=== PATIENT | female | born 1995 | race Caucasian/White ===

== ENCOUNTER 2021-07-16 15:05 | Emergency (ER) | payer BC ==
[2021-07-16] MEDS ORDERED: Morphine 2 MG/ML SYRINGE IVPUSH ONE (15:24)
--- NOTE | 2021-07-16 15:29 | EDM.PDOC ---
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 The patient reports Dr. Medina placed an IUD (Mirena) on Thursday in the clinic. The patient reports she has been having increased cramping since the IUD was placed. The patient reports she has not contacted Dr. Medina prior to coming to the ED. The patient denies any additional symptoms or concerns. Onset Date: 07/12/21 Duration: Constant, Getting Worse Location: Reports: Abdomen (lower abdomen) Quality: Reports: Ache, Other (cramping) Severity: Moderate Improves with: Reports: None Worsens with: Reports: None Context: Reports: Other Associated Symptoms: Reports: No Other Symptoms ED ROS GENERAL - Review of Systems Review Of Systems: Comprehensive ROS is negative, except as noted in HPI. ED EXAM, GI/ABD - Physical Exam Exam: See Below Exam Limited By: No Limitations General Appearance: Alert, WD/WN, Moderate Distress Eyes: Bilateral: Normal Appearance, EOMI Ears: Normal External Exam, Normal Canal, Hearing Grossly Normal, Normal TMs Nose: Normal Inspection, Normal Mucosa, No Blood Throat/Mouth: Normal Inspection, Normal Lips, Normal Teeth, Normal Gums, Normal Oropharynx, Normal Voice, No Airway Compromise Head: Atraumatic, Normocephalic Neck: Normal Inspection, Supple, Non-Tender, Full Range of Motion Respiratory/Chest: No Respiratory Distress, Lungs Clear, Normal Breath Sounds, No Accessory Muscle Use, Chest Non-Tender Cardiovascular: Normal Peripheral Pulses, Regular Rate, Rhythm, No Edema, No Gallop, No JVD, No Murmur, No Rub GI/Abdominal Exam: Normal Bowel Sounds, Soft, No Organomegaly, No Distention, No Abnormal Bruit, No Mass, Pelvis Stable, Tender (lower abdomen) (Female) Exam: Deferred Rectal (Female) Exam: Deferred Back Exam: Normal Inspection, Full Range of Motion, NT Extremities: Normal Inspection, Normal Range of Motion, Non-Tender, Normal Capillary Refill, No Pedal Edema Neurological: Alert, Oriented, CN II-XII Intact, Normal Cognition, Normal Gait, Normal Reflexes, No Motor/Sensory Deficits Psychiatric: Normal Affect, Normal Mood Skin Exam: Warm, Dry, Intact, Normal Color, No Rash Lymphatic: No Adenopathy Course - Vital Signs Last Recorded V/S: Last Vital Signs Temp 97.6 F 07/16/21 15:22 Pulse 87 07/16/21 15:22 Resp 18 07/16/21 15:22 BP 156/115 H 07/16/21 15:22 Pulse Ox 98 07/16/21 15:22 - Orders/Labs/Meds Orders: Active Orders 24 hr Category Date Time Status CBC WITH AUTO DIFF [HEME] Stat Lab 07/16/21 15:24 Ordered COMPREHENSIVE METABOLIC PN,CMP [CHEM] Stat Lab 07/16/21 15:24 Ordered HCG QUALITATIVE,SERUM [CHEM] Stat Lab 07/16/21 15:24 Ordered Meds: Medications Discontinued Medications Generic Name Dose Route Start Last Admin Trade Name Freq PRN Reason Stop Dose Admin Morphine Sulfate 2 mg 07/16/21 15:24 Morphine 2 Mg/Ml Syringe IVPUSH 07/16/21 15:25 ONETIME ONE Departure - Departure Time of Disposition: 17:46 Disposition: Home, Self-Care 01 Condition: Fair Clinical Impression: Uterine cramping IUD complication Qualifiers: Device complication type: unspecified Encounter type: initial encounter Qualified Code(s): T83.9XXA - Unspecified complication of genitourinary prosthetic device, implant and graft, initial encounter - Discharge Information *PRESCRIPTION DRUG MONITORING PROGRAM REVIEWED*: Not Applicable *COPY OF PRESCRIPTION DRUG MONITORING REPORT IN PATIENT CHERISE: Not Applicable Forms: ED Department Discharge Care Plan Goals: The patient was advised of the examination, lab and ultrasound results during the visit. The patient was advised to call Dr. Muñoz's nurse if she chooses to have the IUD removed. The patient was given an IV dose of Morphine and an oral dose of Harvey (10/325) while in the ED for discomfort. The patient was discharged with a script for Harvey (5/325) #12 to take 1 by mouth every 6 hours as needed for the cramping/pain. If the patient has any additional symptoms or concerns, the patient should either return to the emergency department or visit her primary care facility. Sepsis Event Note (ED) - Focused Exam Vital Signs: Vital Signs Temp Pulse Resp BP Pulse Ox 07/16/21 15:22 97.6 F 87 18 156/115 H 98 - My Orders Last 24 Hours: My Active Orders 07/16/21 15:24 CBC WITH AUTO DIFF [HEME] Stat COMPREHENSIVE METABOLIC PN,CMP [CHEM] Stat HCG QUALITATIVE,SERUM [CHEM] Stat - Assessment/Plan Last 24 Hours: My Active Orders 07/16/21 15:24 CBC WITH AUTO DIFF [HEME] Stat COMPREHENSIVE METABOLIC PN,CMP [CHEM] Stat HCG QUALITATIVE,SERUM [CHEM] Stat
[2021-07-16 15:55] LABS: CHLORIDE,CL 102 mmol/L (98-107); SODIUM,NA 140 mmol/L (136-145)
--- NOTE | 2021-07-16 17:31 | US ---
PROCEDURE INFORMATION: Exam: US Pelvis, Transabdominal, Limited Exam date and time: 07/16/2021 4:34 PM Age: 26 years old Clinical indication: Device placement; Iud placement/localization; Prior surgery; Surgery date: 6+ months; Surgery type: Fibroid surgery March 2021 TECHNIQUE: Imaging protocol: Real-time limited transabdominal pelvic ultrasound with image documentation. COMPARISON: No relevant prior studies available. FINDINGS: Uterus/cervix: The uterus measures 6.9 x 4.4 x 3.5 cm. There is an IUD present in the uterus in an appropriate position. Few nabothian cysts in the cervix. Right adnexa: The right ovary measures 2.5 x 4 x 2.2 cm. Normal flow demonstrated. Left adnexa: The left ovary measures 2.9 x 1.9 x 1.7 cm. Normal flow demonstrated. IMPRESSION: There is an IUD present in the uterus in an appropriate position.
--- NOTE | 2021-07-16 17:31 | US ---
PROCEDURE INFORMATION: Exam: US Pelvis, Transvaginal Exam date and time: 07/16/2021 4:34 PM Age: 26 years old Clinical indication: Device placement; Iud placement/localization; Prior surgery; Surgery date: 6+ months; Surgery type: Fibroid surgery March 2021; Additional info: Iud placed Thursday (07/12/21), TECHNIQUE: Imaging protocol: Real-time transvaginal pelvic ultrasound with image documentation. Transvaginal imaging was used for better evaluation of the endometrium, adnexa, and/or cervix. COMPARISON: No relevant prior studies available. FINDINGS: Uterus/cervix: The uterus measures 6.9 x 4.4 x 3.5 cm. There is an IUD present in the uterus in an appropriate position. Few nabothian cysts in the cervix. Right adnexa: The right ovary measures 2.5 x 4 x 2.2 cm. Normal flow demonstrated. Left adnexa: The left ovary measures 2.9 x 1.9 x 1.7 cm. Normal flow demonstrated. Intraperitoneal space: No free fluid. IMPRESSION: There is an IUD present in the uterus in an appropriate position.
[2021-07-16] MEDS ORDERED: Acetaminophen/HYDROcodone 325-10 MG Tab PO ONE (17:46)
== END 2021-07-16 18:05 | disposition home or self-care (01) ==
LOC: DL.ED 15:05
DX: T83.89XA Other specified complication of genitourinary prosthetic devices, implants and grafts, initial encounter (principal); R10.2 Pelvic and perineal pain
CPT/HCPCS: 36415; 76830; 76857; 80053; 84703; 85025; 96374; 99284; A9270; J2270

== ENCOUNTER 2021-09-22 19:22 | Emergency (ER) | payer BC ==
[2021-09-22 20:22] LABS: ANION GAP 9.8 mEq/L (7-13); CHLORIDE,CL 102 mmol/L (98-107); SODIUM,NA 138 mmol/L (136-145)
[2021-09-22] MEDS ORDERED: Sulfamethoxazole/Trimethoprim 800-160 MG Tab PO ONE (20:53)
--- NOTE | 2021-09-22 21:06 | EDM.PDOC ---
ED HPI GENERAL MEDICAL PROBLEM - General Chief Complaint: Skin Complaint Stated Complaint: RASH AND LUMPS ON ARM Time Seen by Provider: 09/22/21 20:00 Source of Information: Reports: Patient History Limitations: Reports: No Limitations - History of Present Illness INITIAL COMMENTS - FREE TEXT/NARRATIVE: 26 y/o F c/o R upper medial arm rash and tenderness since this morning. Pt had a lypoma removed from her R armpit in [place] several weeks ago with no complications. Today the pt woke up with the rash that has been spreading down her arm. NKDA. 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 ED EXAM, SKIN/RASH Exam: See Below General Appearance: Alert, No Apparent Distress Throat/Mouth: Normal Inspection, Normal Lips, Normal Teeth, Normal Gums, Normal Oropharynx, Normal Voice, No Airway Compromise Head: Atraumatic, Normocephalic Neck: Normal Inspection, Supple, Non-Tender, Full Range of Motion Respiratory/Chest: No Respiratory Distress, Lungs Clear, Normal Breath Sounds, No Accessory Muscle Use, Chest Non-Tender Cardiovascular: Normal Peripheral Pulses, Regular Rate, Rhythm, No Edema, No Gallop, No JVD, No Murmur, No Rub Peripheral Pulses: 2+: Radial (L), Radial (R) GI/Abdominal: Soft, Non-Tender Back Exam: Normal Inspection, Full Range of Motion Extremities: Other (erythematous rash R upper medial arm between shoulder and elbow, no weeping or skin eruptions) Neurological: Alert, Oriented, CN II-XII Intact, Normal Cognition, Normal Gait, Normal Reflexes, No Motor/Sensory Deficits Skin: Warm, Dry, Intact Course - Vital Signs Last Recorded V/S: Last Vital Signs Temp 98.3 F 09/22/21 19:39 Pulse 93 09/22/21 19:39 Resp 16 09/22/21 19:39 BP 136/89 09/22/21 19:39 Pulse Ox 97 09/22/21 19:39 - Orders/Labs/Meds Orders: Active Orders 24 hr Category Date Time Status Sulfamethoxazole/Trimethoprim [Septra DS] Med 09/22/21 20:53 Once 1 tab PO ONETIME ONE Labs: Laboratory Tests 09/22/21 09/22/21 09/22/21 Range/Units 19:45 19:45 19:45 WBC 10.7 H (5.0-10.0) 10^3/uL RBC 4.05 L (4.2-5.4) 10^6/uL Hgb 13.3 (12.0-16.0) g/dL Hct 38.7 (37.0-47.0) % MCV 95.6 (80-100) fL MCH 32.8 (27.0-34.0) pg MCHC 34.4 (33.0-35.0) g/dL Plt Count 273 (150-450) 10^3/uL Neut % (Auto) 64.9 (42.2-75.2) % Lymph % (Auto) 28.9 (20.5-50.1) % [place] % (Auto) 4.9 (2-8) % Eos % (Auto) 1.1 (1.0-3.0) % Baso % (Auto) 0.2 (0.0-1.0) % D-Dimer, Quantitative < 100 (0-400) ng/mL Sodium 138 (136-145) mmol/L Potassium 3.8 (3.5-5.1) mmol/L Chloride 102 (98-107) mmol/L Carbon Dioxide 30 (21-32) mmol/L Anion Gap 9.8 (7-13) mEq/L BUN 13 (7-18) mg/dL Creatinine 0.74 (0.55-1.02) mg/dL Est Cr Clr Drug Dosing 103.67 mL/min Estimated GFR (MDRD) > 60 BUN/Creatinine Ratio 17.6 (No establ ref range) Glucose 99 (70-99) mg/dL Calcium 9.3 (8.5-10.1) mg/dL Total Bilirubin 0.4 (0.2-1.0) mg/dL AST 22 (15-37) U/L ALT 81 H (14-59) U/L Alkaline Phosphatase 64 (46-116) U/L C-Reactive Protein 0.5 (0.0-0.9) mg/dL Total Protein 7.7 (6.4-8.2) g/dL Albumin 4.3 (3.4-5.0) g/dL Globulin 3.4 Albumin/Globulin Ratio 1.3 Meds: Medications Discontinued Medications Generic Name Dose Route Start Last Admin Trade Name Freq PRN Reason Stop Dose Admin Trimethoprim/Sulfamethoxazole 1 tab 09/22/21 20:53 Sulfamethoxazole/Trimethoprim 800-160 Mg Tab PO 09/22/21 20:54 ONETIME ONE - Re-Assessments/Exams Free Text/Narrative Re-Assessment/Exam: 09/22/21 21:06 I discussed the labs and exam with pt and informed her that she has a cellulitis and that her DDimer that evalautes the risk of blood clots was negative. I will discharge her with an RX for bactrim DS. Departure - Departure Time of Disposition: 21:07 Disposition: Home, Self-Care 01 Condition: Good Clinical Impression: Cellulitis of arm, right - Discharge Information *PRESCRIPTION DRUG MONITORING PROGRAM REVIEWED*: Not Applicable *COPY OF PRESCRIPTION DRUG MONITORING REPORT IN PATIENT CHERISE: Not Applicable Instructions: Cellulitis, Adult Additional Instructions: RX: Bactrim DS Use tylenol and Motrin for pain as needed. If the rash does not resolve in 7-10 days or if any new symptoms or concerns develop contact your primary care facility or return to the ER. Sepsis Event Note (ED) - Evaluation Sepsis Screening Result: No Definite Risk - Focused Exam Vital Signs: Vital Signs Temp Pulse Resp BP Pulse Ox 09/22/21 19:39 98.3 F 93 16 136/89 97 - My Orders Last 24 Hours: My Active Orders 09/22/21 20:53 Sulfamethoxazole/Trimethoprim [Septra DS] 1 tab PO ONETIME ONE - Assessment/Plan Last 24 Hours: My Active Orders 09/22/21 20:53 Sulfamethoxazole/Trimethoprim [Septra DS] 1 tab PO ONETIME ONE
== END 2021-09-22 21:15 | disposition home or self-care (01) ==
LOC: DL.ED 19:22
DX: L03.113 Cellulitis of right upper limb (principal); Z88.1 Allergy status to other antibiotic agents
CPT/HCPCS: 36415; 80053; 85025; 85379; 86140; 99283; A9270-GY

== ENCOUNTER 2023-06-05 13:23 | Emergency (ER) | payer BC ==
[2023-06-05] MEDS ORDERED: Sodium Chloride 0.9% 10 ML Syringe FLUSH PRN (13:45)
[2023-06-05 13:53] LABS: BASOPHILS PERCENT AUTO 0.2 % (0.0-1.0); EOSINOPHILS PERCENT AUTO 0.6 % (1.0-3.0); HEMATOCRIT 38.4 % (37.0-47.0); HEMOGLOBIN 13.1 g/dL (12.0-16.0); LYMPHOCYTES PERCENT AUTO 33.6 % (20.5-50.1); MEAN CORPUSCULAR HEMOGLOBIN 31.9 pg (27.0-34.0); MEAN CORPUSCULAR HGB CONC 34.1 g/dL (33.0-35.0); MEAN CORPUSCULAR VOLUME 93.4 fL (80-100); MONOCYTES PERCENT AUTO 9.1 % (2-8); NEUTROPHILS PERCENT AUTO 56.5 % (42.2-75.2); PLATELET COUNT,PLT 344 10^3/uL (150-450); RED BLOOD CELL COUNT 4.11 10^6/uL (4.2-5.4); WHITE BLOOD CELL COUNT,WBC 8.2 10^3/uL (5.0-10.0)
[2023-06-05] MEDS: methylPREDNISolone Sodium Succinate 125 MG/2 ML SDV IVPUSH ONE (14:11)
[2023-06-05] MEDS: Ondansetron 4 MG/2 ML SDV IV ONE (14:11)
[2023-06-05] MEDS: Sodium Chloride 0.9% 1,000 ML IV ONE (14:12)
[2023-06-05] MEDS: HYDROmorphone 0.5 MG/0.5 ML Syringe IVPUSH ONE (14:12)
[2023-06-05 14:16] LABS: LACTIC ACID 0.7 mmol/L (0.4-2.0)
[2023-06-05 14:19] LABS: ALANINE AMINOTRANSFERASE,ALT 22 U/L (14-59); ALBUMIN 4.4 g/dL (3.4-5.0); ALKALINE PHOSPHATASE 51 U/L (46-116); ANION GAP 13.1 mEq/L (7-13); ASPARTATE AMNIOTRANSFERASE,AST 11 U/L (15-37); BILIRUBIN TOTAL 0.4 mg/dL (0.2-1.0); BLOOD UREA NITROGEN,BUN 11 mg/dL (7-18); BUN/CREATININE RATIO 15.3 (No establ ref range); CALCIUM 9.6 mg/dL (8.5-10.1); CARBON DIOXIDE,CO2 31 mmol/L (21-32); CHLORIDE,CL 98 mmol/L (98-107); CREATININE 0.72 mg/dL (0.55-1.02); EST CRCL DRUG DOSING (CG) 104.68 mL/min; GLUCOSE RANDOM 80 mg/dL (70-99); LIPASE 202 U/L (73-393); POTASSIUM,K 4.1 mmol/L (3.5-5.1); PROTEIN TOTAL,TP 8.7 g/dL (6.4-8.2); SODIUM,NA 138 mmol/L (136-145)
[2023-06-05 14:22] LABS: C-REACTIVE PROTEIN < 0.2 mg/dL (0.0-0.9); ESTIMATED GFR 117 mL/min (>=60)
[2023-06-05 14:29] LABS: APPEARANCE,URINE CLEAR (CLEAR); BILIRUBIN,URINE NEGATIVE (NEGATIVE); COLOR,URINE YELLOW (YELLOW); GLUCOSE,URINE NEGATIVE (NEGATIVE); KETONES,URINE NEGATIVE (NEGATIVE); LEUKOCYTE ESTERASE,URINE TRACE (NEGATIVE); NITRITE,URINE NEGATIVE (NEGATIVE); OCCULT BLOOD,URINE NEGATIVE (NEGATIVE); PROTEIN,URINE NEGATIVE (NEGATIVE); UROBILINOGEN,URINE 0.2 mg/dL (0.2-1.0)
[2023-06-05 14:36] LABS: BACTERIA,URINE FEW /HPF (0-FEW/HPF); EPITHELIAL CELLS,URINE FEW /HPF (NOT SEEN); RBC,URINE NOT SEEN /HPF (0-5); WBC,URINE 0-5 /HPF (0-5/HPF)
== END 2023-06-05 15:30 | disposition home or self-care (01) ==
LOC: DL.ED 13:23
DX: K51.911 Ulcerative colitis, unspecified with rectal bleeding (principal); E66.9 Obesity, unspecified; Z79.899 Other long term (current) drug therapy; Z88.1 Allergy status to other antibiotic agents; Z68.33 Body mass index [BMI] 33.0-33.9, adult
CPT/HCPCS: 36415; 80053; 81001; 81025; 83605; 83690; 84145; 85025; 85651; 86140; 87086; 96361; 96374; 96375; 99283; 99284-25; J1170; J2405; J2930; J7030